=== PATIENT | female | born 1975 | race Caucasian/White ===

== ENCOUNTER 2019-12-28 06:05 | Outpatient (REF) | payer MEDICAID, SELFPAY ==
--- NOTE | 2019-12-28 06:15 | XR_ITS ---
EXAMINATION: XR LUMBOSACRAL SPINE WITH OBLIQUES CLINICAL INFORMATION: Lower back pain. COMPARISON: None TECHNIQUE: AP, both oblique, and lateral views of the lumbar spine. Lateral view of the lumbosacral junction. FINDINGS: The vertebral bodies and posterior elements are normal. There is no spondylolysis defect. The disc spaces are preserved and the vertebral alignment is normal. The paraspinal soft tissues are normal. IMPRESSION: Unremarkable examination.
== END 2019-12-28 06:06 | disposition home or self-care (01) ==
LOC: HO.XRAY 06:05
PROVIDERS: PCP Internal Medicine; Visit Provider Internal Medicine
DX: G89.29 Other chronic pain (principal); M54.5 Low back pain
CPT/HCPCS: 72110

== ENCOUNTER 2020-04-28 15:49 | Outpatient (REF) | payer MEDICAID, SELFPAY ==
--- NOTE | ~2020-04-28 | US_ITS ---
EXAMINATION: US RETROPERITONEAL LIMITED (RENAL ONLY) CLINICAL INFORMATION: Chronic kidney disease, stage 3B. COMPARISON: CT abdomen and pelvis without contrast dated 10/22/2017. TECHNIQUE: Real-time imaging of the kidneys. FINDINGS: RIGHT KIDNEY: 11.1 x 4.8 x 5.3 cm (SAG x AP x TRV). The kidney is normal in size, contour, and echogenicity. Renal cortical thickness is normal. No hydronephrosis. There is an anechoic cyst midpole measuring 1.3 x 1.3 cm. Multiple echogenic calcifications suggestive of nephrocalcinosis. LEFT KIDNEY: 11.4 x 4.9 x 5.0 cm (SAG x AP x TRV). The kidney is normal in size, contour, and echogenicity. Renal cortical thickness is normal. No hydronephrosis. There are 2 anechoic cysts in the upper pole measuring 0.9 x 0.9 x 1.0 cm and 0.8 x 0.8 x 0.8 cm. Multiple echogenic calcifications suggestive of nephrocalcinosis. US/US renal BI IMPRESSION: Bilateral simple renal cysts. Bilateral nephrocalcinosis with no echogenic stones or hydronephrosis.
== END 2020-04-28 15:50 | disposition home or self-care (01) ==
LOC: HO.US 15:49
PROVIDERS: PCP Internal Medicine; Visit Provider Internal Medicine Nephrology
DX: N18.32 Chronic kidney disease, stage 3b (principal)
CPT/HCPCS: 76775

== ENCOUNTER 2021-07-03 18:47 | Outpatient (REF) | payer MEDICAID, SELFPAY ==
--- NOTE | ~2021-07-03 | MR_ITS ---
EXAMINATION: MR LUMBAR SPINE WITHOUT CONTRAST CLINICAL INFORMATION: 46-year-old with complaints of low back and bilateral leg pain. Left sciatica. COMPARISON: None TECHNIQUE: MRI of the lumbar spine was obtained using routine sequences without contrast. FINDINGS: Coronal Alignment: Normal. Sagittal Alignment: There is 2 mm of grade 1 spondylolisthesis at L4-L5 without spondylolysis. Lumbar lordotic curvature is maintained. Lumbosacral Junction: Normal. 5 [id number] lumbar vertebra. Vertebral Bodies: Normal height. Disc Spaces and Endplates: Mild disc space height loss at L4-L5 and L5-S1 with disc desiccation at these levels without significant spondylosis. Remaining lumbar intervertebral discs demonstrate normal height and signal. Spinal Canal: No abnormal developmental findings. Bone Marrow: Mild reactive subchondral marrow edema and subchondral cystic change on both sides of the L4-L5 facet joints bilaterally with associated bilateral facet joint effusions consistent with active inflammatory changes at these facet joints. Otherwise bone marrow signal intensity appears within normal limits. Conus Medullaris: Terminates at L1. Morphology and signal is normal. Intradural Nerve Roots: Within normal limits. L5-S1: Minor annular bulging noted with a tiny left foraminal/subarticular annular fissure with slight flattening of the ventral dural sac. Disc bulging contacts the S1 nerve root sleeves bilaterally without nerve root compression or displacement. No significant canal stenosis. Ligamentum flavum thickening is noted. No significant neuroforaminal stenosis. L4-L5: Slight unroofing of the posterior disc margin consistent with grade 1 degenerative spondylolisthesis. Superimposed disc bulging noted with mild flattening of the ventral dural sac, with slightly prominent dorsal epidural fat pad, ligamentum flavum thickening and severe bilateral facet arthrosis. Inflammatory changes at both facet joints as described above. No significant spinal canal or neuroforaminal stenosis. L3-L4: No significant disc bulge or herniation. Mild facet arthrosis noted bilaterally. No significant canal or neuroforaminal stenosis. L2-L3: No significant disc bulge or herniation. Mild bilateral facet arthrosis noted. No canal or neuroforaminal stenosis. L1-L2: No disc bulge or herniation. No facet arthrosis, canal or neuroforaminal stenosis. Paraspinal/Retroperitoneal: No paravertebral soft tissue masses. Multiple nonenlarged retroperitoneal/para-aortic lymph nodes are noted. Otherwise the paravertebral soft tissues are unremarkable. MR/MR lumbar spine wo con IMPRESSION: 1. Discogenic degenerative changes at L4-L5 and L5-S1 as discussed above with grade 1 degenerative spondylolisthesis at L4-L5, with bilateral facet arthropathy at multiple levels, most apparent at L4-L5 with active inflammatory changes at both facet joints. 2. Disc bulging and left lateral annular fissuring at L5-S1 and disc bulging at L4-L5 with no significant spinal canal or neuroforaminal stenosis.
== END 2021-07-03 18:48 | disposition home or self-care (01) ==
LOC: HO.MRI 18:47
PROVIDERS: Visit Provider Internal Medicine
DX: M54.16 Radiculopathy, lumbar region (principal); M54.32 Sciatica, left side
CPT/HCPCS: 72148

== ENCOUNTER → 2021-07-27 15:35 | Outpatient (BNVA) | payer MEDICAID, SELFPAY | PROVIDERS: PCP Internal Medicine; Visit Provider Nurse Practitioner Family | DX: M51.36 Other intervertebral disc degeneration, lumbar region (principal); M47.816 Spondylosis without myelopathy or radiculopathy, lumbar region; M54.16 Radiculopathy, lumbar region; M62.830 Muscle spasm of back | CPT/HCPCS: 99202 ==